=== PATIENT | male | born 1995 | race Caucasian/White ===

== ENCOUNTER → 2021-01-18 09:32 | Outpatient (CLI) | payer OTHER, SELFPAY ==
[2021-01-18 11:09] LABS: COVID19 -Nasal RAPID Negative (Negative)
== END ==
PROVIDERS: Visit Provider Physician Assistant
DX: Z20.822 Contact with and (suspected) exposure to COVID-19 (principal)
CPT/HCPCS: 87635

== ENCOUNTER 2021-01-19 10:59 | Day surgery (SDC) | payer OTHER, SELFPAY ==
[2021-01-19] VITALS (12 sets, daily range): BP systolic 120–143; BP diastolic 73–88; PULSE 59–86; RESP 8–18; TEMP 36.8; O2SAT 85–99; BMI 29.8
--- NOTE | 2021-01-19 | PATH_ITS ---
[facility] Accession Number: [id number] . 01 Material submitted: . PART A: sinus, maxillary - LEFT MIDDLE TURBINATE WITH MAXILLARY SINUS POLYP PART B: body - RIGHT MIDDLE TURBINATE . 01 Diagnosis: A. Left Middle Turbinate with Maxillary Sinus Polyp, Excisions: Inflamed sinonasal mucosa and trabecular bone, consistent with turbinate tissue. Fragment of polypoid inflamed and edematous sinonasal mucosa with scattered eosinophils, consistent with sinonasal polyp. Negative for malignancy. . B. Right Middle Turbinate, Excision: Inflamed sinonasal mucosa with trabecular bone, consistent with turbinate tissue. Negative for malignancy. [facility] 01/24/2021 1010 Local . 01 Electronically signed: . Kike Oneal MD, Dermatopathologist NPI- [id number] . 01 Gross description: . A. The specimen is received in formalin, labeled left middle turbinate and maxillary sinus polyp, and consists of a 1.6 x 1.0 x 0.5 cm turbinate with a rocha-pink, focally hemorrhagic and smooth mucosa. Additionally, there is a 2.2 x 1.5 x 1.0 cm, disrupted, rocha, glistening polyp. Also received are multiple rocha-pink fragments of soft tissue and bone measuring 2.0 x 1.0 x 0.4 cm in aggregate. The specimen is entirely submitted. . A1: Turbinate with additional bone and soft tissue fragments, following decalcification. A2: Polyp, serially sectioned. . B. The specimen is received in formalin, labeled right middle turbinate, and consists of a 2.1 x 1.2 x 0.9 cm turbinate with a rocha pink mucosa and a 0.3 x 0.3 x 0.2 cm, rocha-white nodule abutting the margin. The margin is inked blue. The specimen is trisected and entirely submitted following decalcification in cassette B1. ([id number]) /FRR 01/21/2021 [facility]3 Local . 01 Pathologist provided ICD-10: J33.9, J32.4 . 01 CPT . 848022, 349061, 277371 Performed at: 01 [facility] [address], [place], [place] [id number] MD Watson Warren MD Phone: [phone]
[2021-01-19] MEDS: ACETAMINOPHEN 325 MG TABLET 975 MG PO (11:12)
[2021-01-19] MEDS: LACTATED RINGERS 1,000 ML 42 ML IV ×2 (11:13→15:09)
--- NOTE | 2021-01-19 11:44 | PM.PREOP ---
Pre-operative Note COVID-19 COVID-19 status: Result pending Interval Note History & Physical reviewed/Exam performed by Physician: Yes Changes to H&P: No
--- NOTE | 2021-01-19 11:44 | PM.HP.1 ---
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 He was last seen in clinic 11/07/2020, has been using up to twice daily budesonide irrigations but with incomplete results. No recent cough, cold, or fever. He would like to proceed with surgery. Patient History Surgical History [place] teeth removed Family & Social History Social History: household members significant other Tobacco & Substance use: Smoking Status Never smoker alcohol intake never Substance Use Type does not use Meds Home Medications and Allergies Home Medications Medication Instructions Recorded Confirmed Type Claritin 10 mg PO DAILY PRN 01/18/21 01/19/21 History Allergies Allergy/AdvReac Type Severity Reaction Status Date / Time No Known Drug Allergies Allergy Verified 01/18/21 16:39 Review of Systems Review of Systems ROS: Yes All systems reviewed with the patient and are negative except as otherwise documented Exam Vital Signs (past 8 hours): - 01/19/21 11:17 Temperature 98.3 F Pulse Rate 59 L Respiratory Rate 18 Blood Pressure 120/74 Pulse Oximetry 98 Oxygen Delivery Method Room Air Oxygen Flow Rate 0 Narrative Exam Narrative: Well-developed well-nourished muscular male in no acute distress. Mild right anterior septal deviation, some posterior deviation, polyps partially obstructing right middle turbinate. Heart regular rate and rhythm without murmur, lungs clear to auscultation bilaterally. Assessment & Plan Assessment & Plan narrative: Assessment: 1. Chronic rhinosinusitis with nasal polyposis 2. Nasal airway obstruction 3. Septal deviation 4. Upper airway obstruction 5. Inferior turbinate hypertrophy. Plan: Following discussion of the material risks benefits complications and alternatives, the patient elected to proceed.
--- NOTE | 2021-01-19 11:48 | P.OP_ITS ---
Operative Date/Time/Diagnoses Date of procedure: 01/19/21 Time of procedure: 15:22 Pre-op diagnosis: 1. Chronic rhinosinusitis with nasal polyposis 2. Nasal airway obstruction 3. Septal deviation 4. Inferior turbinate hypertrophy Post-op diagnosis: same Procedure & Clinicians Procedure: 1. Septoplasty 2. Bilateral inferior turbinate reduction via intramural cautery 3. LEFT endoscopic maxillary antrostomy with tissue removal, RIGHT endoscopic maxillary antrostomy4. 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 Following discussion of the material risks benefits complications and alternatives, he elected to proceed. Surgeon: Balbir Galaviz Click Yes if Unassisted: Yes Anesthesia Type: General and Local Operative Notes Findings: Primarily RIGHT septal deviation at the level of the middle meatus, some posterior RIGHT deviation in addition. Polypoid middle turbinates resected, polyp mostly filling LEFT maxillary sinus resected, scant purulence and some inflammation inferiorly. Clear RIGHT maxillary sinus. Polypoid tissue LEFT primarily anterior ethmoids. Sphenoidotomies and frontal sinusotomies not performed. L>R ITH. Closure Type: primary Specimen(s): other (LEFT middle turbinate and sinus polyp, RIGHT middle turbinate) Estimated Blood Loss (mL): 200 Blood products transfused: none Procedure in detail: Following identification and confirmation of consent the patient was brought to the operating room suite and placed in the supine position. General endotracheal anesthesia was administered. I infiltrated the septum widely bilaterally with 1% lidocaine 1 100,000 epinephrine followed by temporary packing with cotton with Afrin and 4% lidocaine only anteriorly. Following sterile prep and drape, the packing was removed and I performed a right westley-transfixion incision, elevated the right mucoperichondrial and mucoperiosteal flap. I disarticulated near the bony/cartilaginous junction and elevated the left mucoperiosteal flap. Deviated portions of the perpendicular plate of the ethmoid and vomer were resected. The residual quadrilateral ca rtilage was further straightened by trimming it inferiorly as well as reducing the maxillary crest. A 2 mm strip of cartilage paralleling the residual 1 cm dorsal strut was resected to further straighten the quadrilateral cartilage. The hemitransfixion incision was closed with interrupted 5 0 chromic followed by a running 4 0 plain gut mattress suture to reapproximate the septal flaps. At case completion, 20/1000th of an inch silastic splints were placed bilaterally, sutured anteriorly with a single 4 0 nylon. Under endoscopic guidance I infiltrated the posterior and anterior superior inse rtion of the each middle turbinate. 1:1000 topical epinephrine on small pledgets were placed within the middle meatus for 10 minutes prior. The middle turbinate was resected with curved scissors, with the residual inferior stump cauterized with suction cautery on a setting of 15. The backbiting forceps performed uncinectomy along with the microdebrider. Polyps were resected with curved forceps and the curved microdebrider from within the sinus until clear. Large Maxillary antrostomy was created by extending the natural os posteriorly and inferiorly. The ethmoid bulla was resected with the microdebrider. I penetrated the basal lamella inferiorly and medially to enter the posterior ethmoids and visualized the inferior half of the superior turbinate. Posterior to anterior ethmoid dissection was performed with the J curette and forceps although the frontal recess was not approached. Hemostasis Was excellent. On the right side I performed similar injections as well as topical treatment with epinephrine. The middle turbinate was Polypoid and was resected with cautery of the residual stump posteriorly. The uncinate process was lateralized and uncinectomy was performed with backbiting forceps. The maxillary antrostomy was performed and was in continuity with the natural os. The sinus was clear. The ethmoid bulla was resected. I penetrated the basal lamella to enter the posterior ethmoids. Posterior to anterior dissection was performed To approach but not enter into the frontal recess. sponge counts were correct and he was extubated in the operating room and taken to recovery room in stable condition without no complication. Complications: none Post-operative Condition: stable Disposition: same day surgery Plan for aftercare: See orders. Budesonide BID irrigations beginning tomorrow, additional irrigation midday with saline. Polysporin to nostrils at all times. F/u 1 week for splint removal.
--- NOTE | 2021-01-19 13:08 | SUR.OPER ---
Supine on padded OR bed, head on pillow,bilateral arms padded and tucked at side, legs uncrossed, safety belt at thigh, tape over blanket over lower legs .
[2021-01-19] MEDS: EPINEPHrine 1 MG/ML 6 MG TOP (13:16)
[2021-01-19] MEDS: LIDOCAINE 4% SOLN 50 ML 20 ML TOP (13:18)
[2021-01-19] MEDS: OXYMETAZOLINE NASAL SPRAY 15 ML 2 SPRAYS NASAL (13:19)
[2021-01-19] MEDS: LIDOCAINE 1% W/EPI 20 ML INJ (13:20)
[2021-01-19] MEDS: OXYCODONE IR 5 MG TABLET PO (16:15)
[2021-01-19] MEDS: ONDANSETRON 4 MG/2 ML INJ IV (16:15)
== END 2021-01-19 16:40 | disposition home or self-care (01) ==
PROVIDERS: PCP Family Medicine; Referring Provider Otolaryngology; Visit Provider Otolaryngology
PROC: (CPT 30520; principal; 2021-01-19 11:45)
PROC: (CPT 31231; 2021-01-19 11:45)
DX: J32.4 Chronic pansinusitis (principal); J33.9 Nasal polyp, unspecified; J98.8 Other specified respiratory disorders; J34.2 Deviated nasal septum; J34.3 Hypertrophy of nasal turbinates
CPT/HCPCS: 31255; 30520; 30802; 31267; J0171; J0330; J1100; J2250; J2405; J2704; J3010

== ENCOUNTER 2021-05-29 14:57 | Emergency (ER) | payer OTHER, SELFPAY ==
[2021-05-29 15:00] VITALS: BP 154/82; PULSE 66; RESP 18; TEMP 36.9; O2SAT 99
--- NOTE | 2021-05-29 15:32 | ED.GENADULT ---
HPI - General Adult General Chief complaint: Dizziness Stated complaint: DIZZY THREW UP Time Seen by Provider: 05/29/21 15:13 Source: patient Mode of arrival: Ambulatory History of Present Illness HPI narrative: 25-year-old male here for evaluation of a episode that occurred earlier today. He states he was standing. He yawned felt a pop in his left ear. Be the afterwards he had feeling being on steady on his feet. Also had quite a bit of dizziness. Did throw up. He does have a decreased hearing in his left ear now. No sinus congestion. No chest pain. No shortness of breath. Symptoms have improved somewhat since the onset of the symptoms. Related Data Home Medications Medication Instructions Recorded Confirmed Claritin 10 mg PO DAILY PRN 01/18/21 01/19/21 Previous Rx's Medication Instructions Recorded meclizine 25 mg tablet 25 mg PO TID PRN #10 tab 05/29/21 Allergies Allergy/AdvReac Type Severity Reaction Status Date / Time No Known Drug Allergies Allergy Verified 05/29/21 15:09 Review of Systems Constitutional Constitutional: Reports system reviewed and no additional complaints, except as documented and Denies headache(s) ENT Ears, Nose, Mouth, and Throat: Reports system reviewed and no additional complaints, except as documented, Reports as per HPI, Reports abnormal hearing, Reports dizziness and Denies headache(s) Cardiovascular Cardiovascular: Reports system reviewed and no additional complaints, except as documented Respiratory Respiratory: Reports system reviewed and no additional complaints, except as documented Gastrointestinal Gastrointestinal: Reports as per HPI Integumentary/Breasts Skin/Breast: Reports system reviewed and no additional complaints, except as documented Neurologic Neurologic: Reports abnormal hearing, Reports dizziness and Denies headache(s) Hematologic/Lymphatic On Anticoagulants: No Allergic/Immunologic Allergic/Immunologic: Reports system reviewed and no additional complaints, except as documented Patient History Medical History Healthy adult Surgical History (Updated 01/19/21 @ 11:46 by Ashanti Rutherford RN) History of surgical procedure on eye proper using laser [place] teeth removed Social History household members: significant other Smoking Status: Never smoker alcohol intake: never Smoking Status: Never smoker Substance Use Type: does not use Exam Initial Vital Signs Initial Vital Signs: Vital Signs Temperature 98.5 F 09/20/21 15:00 Pulse Rate 66 05/29/21 15:00 Respiratory Rate 18 05/29/21 15:00 Blood Pressure 154/82 H 05/29/21 15:00 Pulse Oximetry 99 05/29/21 15:00 Const General: cooperative and comfortable HENMT Head: normal to inspection and normocephalic Ears: TM normal on the right and other (No movement of the left tympanic membrane with Valsalva) Eyes General: appearance normal, both eyes and all related structures Skin General: no rashes or lesions noted Neuro General: patient alert, patient awake and patient oriented x3 Speech: speech normal Gait: normal gait Scores GCS Nikolai coma scale eye opening: Spontaneous Linden coma scale verbal response: Orientated Nikolai coma scale motor response: Obey commands Linden coma scale total score: 15 Course Vital Signs Vital signs: Vital Signs - 8 hr 05/29/21 15:00 05/29/21 16:09 Temperature 98.5 F Pulse Rate 66 77 Respiratory Rate 18 16 Blood Pressure 154/82 H 122/76 Pulse Oximetry 99 98 Medical Decision Making ECG Data Interpretation: Sinus rhythm Ventricular rate is 62 Normal axis Normal QRS Normal QTC No ST T wave changes MDM Narrative Medical decision making narrative: Patient's right tympanic membrane is unremarkable. The left tympanic membrane has minimal if any movement with Valsalva maneuver. Given his presentation I do have some concern of a small tympanic membrane rupture however there was not visualized on my exam. Patient has some findings consistent with vertigo. Some symptoms consistent with a non vertigo unsteadiness however I do feel that this is peripheral and most likely related to HEENT origin. Will sent home with symptom treatment. He was given return precautions and follow-up instructions. He expressed understanding agreement. Discharge Plan Departure Patient Disposition: Home Clinical Impression: Dizziness Instructions: DI for Dizziness-Nonvertigo Activity Restrictions/Additional Instructions: I recommend that you start on a allergy medicine such as Claritin. It appears that you been on this medication in the past. Also recommend that you also use the meclizine as needed. Contact your medical department for follow-up and to discuss any work-related restrictions. Prescriptions: New meclizine 25 mg tablet 25 mg PO TID PRN (Reason: dizziness) Qty: 10 RF: 0 No Action Claritin 10 mg PO DAILY PRN (Reason: Congestion) RF: 0 Referrals: Debra Munguia MD [Primary Care Provider] - Stand Alone Forms: Work Release Note
[2021-05-29 16:09] VITALS: BP 122/76; PULSE 77; RESP 16; O2SAT 98
== END 2021-05-29 16:09 | disposition home or self-care (01) ==
PROVIDERS: Emergency Provider Emergency Medicine; PCP Family Medicine
DX: R42 Dizziness and giddiness (principal); H91.92 Unspecified hearing loss, left ear
CPT/HCPCS: 93005; 93010; 99281; 99283